=== PATIENT | female | born 1990 | race African-American/Black ===

== ENCOUNTER 2020-09-09 07:35 | Emergency (ER) | payer OTHER ==
[~2020-09-09] VITALS: Ht 172.7 cm; Wt 63.5 kg
[2020-09-09 07:44] VITALS: BP 112/60
[2020-09-09] MEDS ORDERED: VALTREX1000 MG PO (08:28)
== END 2020-09-09 08:55 | disposition home or self-care (01) ==
LOC: ER 07:35
DX: B00.1 Herpesviral vesicular dermatitis (principal)